=== PATIENT | female | born 1985 | race American Indian/Alaskan Native ===

== ENCOUNTER 2017-02-14 11:25 | Emergency (ER) | payer SELFPAY ==
--- NOTE | 2017-02-14 12:15 | Emergency Department Report ---
Chief Complaint: Sore Throat Stated Complaint: SORE THROAT, HOT AND COLD, FEVER Time Seen by Provider: 02/14/17 12:12 - HPI History of Present Illness: sore throat x 3 days cough, chest pain - ROS Review of Systems: + cough + hurts to cough + sore throat - Exam Vital Signs: Vital Signs 02/14/17 11:53 Temperature 98.4 F Pulse Rate 105 H Respiratory 16 Rate Blood Pressure 149/90 O2 Sat by Pulse 99 Oximetry Physical Exam: moderate clear post nasal drainage questionable exudate vs food particle to R tonsil dry cough during exam MSE screening note: Focused history and physical exam performed. Due to findings the following was ordered: xr, ekg, lab ED Disposition for MSE Condition: Stable
--- NOTE | 2017-02-14 14:16 | XRay Report ---
ROUTINE CHEST, TWO VIEWS: History: Chest pain. PA and lateral views demonstrate the heart and mediastinal contour to be of normal size and shape. The lungs are clear and fully expanded and the soft tissues and bony structures are normal. IMPRESSION: Normal study.
--- NOTE | 2017-02-14 17:30 | Emergency Department Report ---
ED ENT HPI - General Chief complaint: Sore Throat Stated complaint: SORE THROAT, HOT AND COLD, FEVER Time Seen by Provider: 02/14/17 12:12 Source: patient Mode of arrival: Ambulatory Limitations: No Limitations - History of Present Illness Initial comments: Patient is a 32-year-old female who presents due to sore throat 3 days. Patient denies any fever or chills. Patient denies any cough, nasal congestion. MD complaint: sore throat Onset/Timin -: days(s) Severity: moderate Quality: aching Consistency: constant Improves with: none Worsens with: swallowing Associated Symptoms: sore throat - Related Data Home Medications Medication Instructions Recorded Confirmed Last Taken Acetaminophen/Codeine [Tylenol #3] 1 tab PO Q6H PRN 02/14/15 02/14/15 Unknown Levothyroxine [Synthroid] 25 mcg PO QAM 02/14/15 02/14/15 Unknown Previous Rx's Medication Instructions Recorded Last Taken Type Ibuprofen [Motrin] 800 mg PO Q8HR PRN #30 tablet 02/14/15 Unknown Rx Phenazopyridine [Pyridium] 200 mg PO TID #6 tab 02/14/15 Unknown Rx Sulfamethoxazole/Trimethoprim 1 each PO BID #14 tablet 02/14/15 Unknown Rx [Bactrim DS TAB] traMADol [Ultram 50 MG tab] 50 mg PO Q6HR PRN #20 tablet 02/14/15 Unknown Rx Amoxicillin [Amoxicillin TAB] 875 mg PO BID #20 tablet 02/14/17 Unknown Rx Ibuprofen [Motrin 800 MG tab] 800 mg PO Q8HR PRN #30 tablet 02/14/17 Unknown Rx Allergies Allergy/AdvReac Type Severity Reaction Status Date / Time No Known Allergies Allergy Verified 07/17/13 19:24 ED Dental HPI - General Chief complaint: Sore Throat Stated complaint: SORE THROAT, HOT AND COLD, FEVER Time Seen by Provider: 02/14/17 12:12 Source: patient Mode of arrival: Ambulatory Limitations: No Limitations - Related Data Home Medications Medication Instructions Recorded Confirmed Last Taken Acetaminophen/Codeine [Tylenol #3] 1 tab PO Q6H PRN 02/14/15 02/14/15 Unknown Levothyroxine [Synthroid] 25 mcg PO QAM 02/14/15 02/14/15 Unknown Previous Rx's Medication Instructions Recorded Last Taken Type Ibuprofen [Motrin] 800 mg PO Q8HR PRN #30 tablet 02/14/15 Unknown Rx Phenazopyridine [Pyridium] 200 mg PO TID #6 tab 02/14/15 Unknown Rx Sulfamethoxazole/Trimethoprim 1 each PO BID #14 tablet 02/14/15 Unknown Rx [Bactrim DS TAB] traMADol [Ultram 50 MG tab] 50 mg PO Q6HR PRN #20 tablet 02/14/15 Unknown Rx Amoxicillin [Amoxicillin TAB] 875 mg PO BID #20 tablet 02/14/17 Unknown Rx Ibuprofen [Motrin 800 MG tab] 800 mg PO Q8HR PRN #30 tablet 02/14/17 Unknown Rx Allergies Allergy/AdvReac Type Severity Reaction Status Date / Time No Known Allergies Allergy Verified 07/17/13 19:24 ED Review of Systems ROS: Stated complaint: SORE THROAT, HOT AND COLD, FEVER Other details as noted in HPI Comment: All other systems reviewed and negative Constitutional: no symptoms reported. denies: chills, diaphoresis, fever, malaise, weakness ENT: throat pain. denies: dental pain, hearing loss, epistaxis Respiratory: no symptoms reported. denies: cough, orthopnea, shortness of breath, SOB with exertion, SOB at rest, stridor, wheezing Skin: denies: rash Neurological: denies: headache, weakness, numbness, paresthesias, confusion ED Past Medical Hx - Past Medical History Hx Hypertension: No Hx Heart Attack/AMI: No Hx Congestive Heart Failure: No Hx Diabetes: No Hx Deep Vein Thrombosis: No Hx Liver Disease: No Hx Renal Disease: No Hx Sickle Cell Disease: No Hx Seizures: No Hx Asthma: No Hx COPD: No Hx HIV: No Additional medical history: hypothyroid - Surgical History Hx Pacemaker: No Hx Internal Defibrillator: No Additional Surgical History: D&C - Social History Smoking Status: Current Every Day Smoker Substance Use Type: None - Medications Home Medications: Home Medications Medication Instructions Recorded Confirmed Last Taken Type Acetaminophen/Codeine [Tylenol #3] 1 tab PO Q6H PRN 02/14/15 02/14/15 Unknown History Ibuprofen [Motrin] 800 mg PO Q8HR PRN #30 tablet 02/14/15 Unknown Rx Levothyroxine [Synthroid] 25 mcg PO QAM 02/14/15 02/14/15 Unknown History Phenazopyridine [Pyridium] 200 mg PO TID #6 tab 02/14/15 Unknown Rx Sulfamethoxazole/Trimethoprim 1 each PO BID #14 tablet 02/14/15 Unknown Rx [Bactrim DS TAB] traMADol [Ultram 50 MG tab] 50 mg PO Q6HR PRN #20 tablet 02/14/15 Unknown Rx Amoxicillin [Amoxicillin TAB] 875 mg PO BID #20 tablet 02/14/17 Unknown Rx Ibuprofen [Motrin 800 MG tab] 800 mg PO Q8HR PRN #30 tablet 02/14/17 Unknown Rx ED Physical Exam - General Limitations: No Limitations General appearance: alert, in no apparent distress - Head Head exam: Present: atraumatic, normocephalic, normal inspection - Eye Eye exam: Present: normal appearance, PERRL, EOMI - ENT ENT exam: Present: mucous membranes moist - Expanded ENT Exam Expanded Throat exam: Positive: tonsillar erythema, tonsillomegaly. Negative: tonsillar exudate, R peritonsillar mass, L peritonsillar mass - Neck Neck exam: Present: normal inspection, full ROM, lymphadenopathy (tonsillar). Absent: tenderness, meningismus, thyromegaly - Neurological Exam Neurological exam: Present: alert, oriented X3, normal gait - Psychiatric Psychiatric exam: Present: normal affect, normal mood - Skin Skin exam: Present: warm, dry, intact ED Course Vital Signs 02/14/17 11:53 Temperature 98.4 F Pulse Rate 105 H Respiratory 16 Rate Blood Pressure 149/90 O2 Sat by Pulse 99 Oximetry ED Medical Decision Making - Medical Decision Making Patient was in no acute distress, patient had slight erythema, tonsillomegaly, no tonsillar exudates, no uvula deviation, no peritonsillar abscess. Patient patent airway. Patient was discharged with prescription for amoxicillin and ibuprofen. She was told to return to the ER for any worsening symptoms. - Differential Diagnosis strep pharyngitis, tonsillitis, peritonsillar abscess Critical care attestation.: If time is entered above; I have spent that time in minutes in the direct care of this critically ill patient, excluding procedure time. ED Disposition Clinical Impression: Acute bacterial tonsillitis Disposition: TO HOME OR SELFCARE Is pt being admited?: No Does the pt Need Aspirin: No Condition: Good Instructions: Tonsillitis (ED) Additional Instructions: Take amoxicillin 875 mg twice a day for 10 days, take ibuprofen 800 mg every 8 hours as needed for pain or fever. Follow-up with your primary care provider or at [facility]. Prescriptions: Amoxicillin [Amoxicillin TAB] 875 mg PO BID #20 tablet Ibuprofen [Motrin 800 MG tab] 800 mg PO Q8HR PRN #30 tablet PRN Reason: Pain Referrals: PRIMARY CARE, [Primary Care Provider] - 3-5 Days Forms: Work/School Release Form(ED) Time of Disposition: 17:28
[2017-02-14 17:43] VITALS: BP 143/72
== END 2017-02-14 17:44 | disposition home or self-care (01) ==
LOC: ED 11:25
DX: J03.90 Acute tonsillitis, unspecified (principal); E03.9 Hypothyroidism, unspecified; F17.200 Nicotine dependence, unspecified, uncomplicated
CPT/HCPCS: 71020; 93005; 93010; 99283